=== PATIENT | male | born 1955 | race American Indian/Alaskan Native ===

== ENCOUNTER 2016-07-26 07:00 | Day surgery (SDC) | payer MEDICARE, OTHER ==
[2016-07-26 07:55] VITALS: PULSE 60
[2016-07-26 08:01] VITALS: BMI 21.6
[2016-07-26 08:26] LABS: INR 1.1 (0.93-1.08); PARTIAL THROMBOPLASTIN TIME 27.6 Seconds (23.7-30.8)
[2016-07-26] MEDS ORDERED: Propofol 10 mg/ml Inj (20 ML) ONE (08:54)
[2016-07-26] MEDS ORDERED: Lactated Ringer's 1,000 ML IV SCH (09:30)
[2016-07-26 10:27] VITALS: BP 150/86; RESP 16; TEMP 97.7; O2SAT 100
== END 2016-07-26 11:00 | disposition home or self-care (01) ==
LOC: ENDO 07:00
PROVIDERS: ATTEND Specialist
DX: Z12.11 Encounter for screening for malignant neoplasm of colon (principal); K57.30 Diverticulosis of large intestine without perforation or abscess without bleeding; K64.8 Other hemorrhoids; I10 Essential (primary) hypertension
CPT/HCPCS: 36415; 45378; 85610; 85730; J2704; J7040; J7120

== ENCOUNTER 2018-05-16 14:37 | Outpatient (CLI) | payer OTHER | END 2018-05-16 14:38 | disposition home or self-care (01) | LOC: CARDIO 14:37 ==

== ENCOUNTER 2018-06-13 16:24 | Outpatient (CLI) | payer OTHER | END 2018-06-13 16:25 | disposition home or self-care (01) | LOC: CARDIO 16:25 ==